=== PATIENT | male | born 1960 | race Caucasian/White ===

== ENCOUNTER 2023-07-08 10:52 | Observation (INO) ==
[2023-07-08 11:14] LABS: ABS Basophils 0.1 10^3/uL (0.0-0.1); ABS Eosinophils 0.2 10^3/uL (0.0-0.5); ABS Lymphocytes 3.2 10^3/uL (1.0-4.8); ABS Neutrophils 6.6 10^3/uL (1.5-7.6); Eosinophil % 2.2 %; Hematocrit 42.6 % (38-53); Hemoglobin 14.2 g/dL (13.2-16.3); Lymphocyte % 28.4 %; Mean Corpuscular Hemoglobin 31.3 pg (27-33); Mean Corpuscular Hgb Conc 33.5 g/dL (31-36); Mean Corpuscular Volume 93.6 fL (80-97); Mean Platelet Volume 10.4 fL (7.5-11.2); Platelet Count 188 10^3/uL (150-450); Red Blood Count 4.55 10^6/uL (4.06-5.63); White Blood Count 11.2 10^3/uL (3.6-10.2)
[2023-07-08 11:25] LABS: INR 1.33 (0.83-1.13)
[2023-07-08 11:53] LABS: Albumin 4.2 g/dL (3.2-5.2); Albumin/Globulin Ratio 1.7 (1-3); Calcium 9.7 mg/dL (8.6-10.3); Creatinine, Serum 0.82 mg/dL (0.67-1.17); Globulin 2.5 g/dL (2-4); Magnesium 2.1 mg/dL (1.9-2.7); Potassium 4.3 mmol/L (3.5-5.0); Total Bilirubin 1.7 mg/dL (0.2-1.0); Total Protein 6.7 g/dL (6.4-8.9); eGFR CKD-EPI 98.7 (>60)
[2023-07-08 12:35] LABS: High Sensitivity Troponin 1 Hr 37 pg/mL (<20)
[2023-07-08 14:51] LABS: High Sensitivity Troponin 3 Hr 45 pg/mL (<20)
[2023-07-08] MEDS ORDERED: Polyethylene Glycol 3350 17 GM PACKET PO PRN (17:09)
[2023-07-08] MEDS ORDERED: Senna TAB 8.6 mg TAB PO PRN (17:09)
[2023-07-08] MEDS ORDERED: Ondansetron 4 mg VIAL 2 MG/ML 2 ml VIAL IV PRN (17:09)
[2023-07-08] MEDS: Metoprolol Tartrate 5 mg VIAL 5 ml VIAL (1 mg/ml) IV ONE (19:37)
[2023-07-08] MEDS: NS 0.9% 1000 ml BAG 1,000 ML IV ONE (19:37)
[2023-07-09] MEDS: Thiamine 100 MG/ML 2 ml VIAL (200 mg) IM ONE (03:49)
[2023-07-09] MEDS: Multivitamins/Minerals TAB PO SCH (03:49)
[2023-07-09] MEDS ORDERED: Naloxone 0.4 mg VIAL 0.4 mg/ml 1 ml VIAL ONE (08:34)
[2023-07-09] MEDS ORDERED: Midazolam 5 mg/5 ml VIAL 1 mg/ml 5 ml VIAL (5 mg) ONE (08:34)
[2023-07-09] MEDS ORDERED: fentaNYL 100 mcg/2 ml 50 MCG/ML VIAL ONE (08:34)
[2023-07-09] MEDS ORDERED: Flumazenil 0.5 mg/5 ml 0.1 MG/ML 5 ml VIAL ONE (08:34)
[2023-07-09] MEDS ORDERED: Flumazenil 0.5 mg/5 ml 0.1 MG/ML 5 ml VIAL IV PRN (08:47)
[2023-07-09] MEDS ORDERED: Naloxone 0.4 mg VIAL 0.4 mg/ml 1 ml VIAL IV PUSH PRN (08:47)
[2023-07-09] MEDS: Amiodarone 400 mg TAB PO SCH (08:50)
[2023-07-09] MEDS: fentaNYL 100 mcg/2 ml 50 MCG/ML VIAL IV SLOW PU ONE (09:18)
[2023-07-09] MEDS: Midazolam 10 mg/10 ml VIAL 1 mg/ml 10 ml VIAL (10 mg) IV SLOW PU ONE (09:18)
[2023-07-10 05:57] VITALS: BP 119/75
== END 2023-07-10 10:00 | disposition home or self-care (01) ==
LOC: ED 10:52 → EDHOLD 10:52 → MEDTELE 19:58
PROVIDERS: ADMIT Internal Medicine; ATTEND Internal Medicine
PROC: CARDVER (ICD-10-PCS; 2023-07-09 08:15)